=== PATIENT | male | born 1995 | race Caucasian/White ===

== ENCOUNTER 2017-06-26 00:44 | Emergency (ER) | payer OTHER ==
[~2017-06-26] VITALS: Ht 175.3 cm; Wt 80.7 kg
[2017-06-26 00:49] VITALS: TEMP 36.9; Ht 175.3 cm; Wt 80.7 kg
[2017-06-26] MEDS ORDERED: XYLOCAINE 1%/SOD BICARB 20 ML VIAL INFIL ONE (01:15)
[2017-06-26 02:09] VITALS: BP 140/70; PULSE 68; O2SAT 97
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
== END 2017-06-26 02:09 | disposition home or self-care (01) ==
LOC: C.EDB 00:45 → C.EDA 02:09
DX: S01.511A Laceration without foreign body of lip, initial encounter (principal); Y04.0XXA Assault by unarmed brawl or fight, initial encounter; Y92.89 Other specified places as the place of occurrence of the external cause